=== PATIENT | male | born 1945 | race Caucasian/White ===

== ENCOUNTER 2018-12-04 09:13 | Day surgery (SDC) | payer OTHER ==
[2018-11-29 12:10] VITALS: BMI 30.7
--- NOTE | 2018-12-04 07:42 | HP ---
History & Physical Update - History History: No Change - Physical Physical: No Change - Assessment Assessment: No Change - Plan Plan: No Change (Initial H&P completed by patient's PCP is complete and accurate /UTD. No new complaints or medication(s). C/o LBP with RLE radiculopathy/ myelopathy)
[2018-12-04] MEDS ORDERED: oxyCODONE HCL 10 MG SUSTAINED ACTING TABLET PO STA (09:31)
[2018-12-04] MEDS ORDERED: BUPIVACAINE HCL/PF 0.5% (5 MG/ML) 30 ML VIAL IJ ONE (09:59)
[2018-12-04] MEDS ORDERED: MIDAZOLAM HCL 2 MG/2 ML SINGLE DOSE VIAL ONE ×2 (09:59→12:01)
[2018-12-04] MEDS ORDERED: GUM MASTIC/STORAX/MSAL/ALCOHOL 1 DRP DROPSBTL MC ONE (11:44)
[2018-12-04] MEDS ORDERED: methylPREDNISolone ACET (DEPO) 40 MG/1 ML VIAL ONE (11:44)
[2018-12-04] MEDS ORDERED: LIDOCAINE 1%/EPI 1:100000 (20 ML MULTI DOSE VIAL) ONE (11:44)
[2018-12-04] MEDS ORDERED: HYDROmorphone HCl 2 MG/ML VIAL ONE (11:47)
[2018-12-04] MEDS ORDERED: BUPIVACAINE HCL/PF 0.5% (5MG/ML) 10 ML VIAL ONE (11:56)
[2018-12-04] MEDS ORDERED: ceFAZolin SODIUM 1 GM VIAL ONE (12:25)
[2018-12-04] MEDS ORDERED: LIDOCAINE 1%/EPI 1:100000 (20 ML MULTI DOSE VIAL) INF ONE (12:25)
--- NOTE | 2018-12-04 14:19 | OP ---
Operative Note - Note: Operative Date: 12/04/18 Pre-Operative Diagnosis: L2/3 Spinal stenosis with LE radiculopathy (R>L) Operation: L2/3 laminectomy (bilateral). Advancement flap closure Post-Operative Diagnosis: Same as Pre-op Surgeon: Edward Pollack Cyanide Case Hardener: Tim Gordon Anesthesiologist/NEWS CLIPPING CUTTER: Ronny Khalil Anesthesia: Spinal Estimated Blood Loss (mls): 25 Fluid Volume Replaced (mls): 1,000 Operative Report Dictated: Yes
--- NOTE | 2018-12-04 14:20 | SURG ---
Surgery Irrigation Supervisor Note Irrigation Supervisor: Tim Gordon PA-C Date of Service: 12/04/18 Diagnosis: L2/3 Spinal stenosis with LE radiculopathy (R>L) Procedure: L2/3 laminectomy (bilateral); Advancement flap closure I was present for the entirety of the operative procedure. For further detail, please refer to operative report. Visit type - Case Type Case Type: Scheduled - New patient This patient is new to me today: Yes Date on this admission: 12/04/18
[2018-12-04 14:39] VITALS: TEMP 98
[2018-12-04 16:27] VITALS: BP 139/79; PULSE 72
--- NOTE | 2018-12-04 16:59 | OP ---
DATE OF OPERATION: 12/04/2018 PREOPERATIVE DIAGNOSIS: Spinal stenosis at L2-3. POSTOPERATIVE DIAGNOSIS: Spinal stenosis at L2-3. PROCEDURE PERFORMED: Laminectomy, L2-3; advancement of flap, L2-3. SURGEON: Edward Pollack MD CENTRIFUGAL DRIER OPERATOR: IMLTON Lawler ESTIMATED BLOOD LOSS: 50 mL. IV FLUIDS: Per Anesthesia. ANESTHESIA: Spinal/TLIP block. COMPLICATIONS: There was none. DISPOSITION: The patient was brought to the PACU in stable condition. INDICATION FOR SURGERY: The patient is a 73-year-old gentleman who had previously undergone lumbar fusion. He had developed adjacent level disease with spinal stenosis at L2-3. He had gone through an exhaustive course of treatment for this, which included medications, physical therapy, as well as injections. Unfortunately his pain continued to persist despite all this. At this point, risks, benefits, and alternatives were discussed and the patient consented to surgery. OPERATIVE NOTE: Patient was brought to the operating room by the anesthesia staff. After appropriate patient identification was performed, spinal anesthesia was given. A TLIP block was also given. The patient was able to position himself prone onto the OR table with all areas of bony prominences well padded at this time. Two needles were placed on his back to isabel off the L2-3 segment. X-rays taken to confirm this was correct. The needle was removed and 10 mL of lidocaine with epinephrine was injected into his back. At this time his back was prepped and draped in a sterile manner. At this point, an incision was made from the top of L2 down to bottom of L3. Dissection was carried down to the fascia. Fascia was split open at this time. An appropriate retractor was then placed in. A spinal needle was placed onto the L2 lamina to isabel off the L2-3 level. X-ray was taken to confirm this is correct. The needle was removed and the interspinous ligament of L2-3 was removed. Portions of the L2-L3 spinous process were removed. The lamina portions of L2-L3 lamina were removed. The flavum was identified, it was removed. A complete decompression was performed such that by the end of the procedure, the L3 nerve root appeared to be well decompressed. The fascia was closed with a number 1 Vicryl suture. Advancement flaps were made at this point. The subcutaneous tissue was closed with 2-0 Vicryl sutures. Skin was closed with 3-0 Monocryl suture. Dermabond was applied. Steri-Strips were applied. A sterile dressing was applied. The patient was placed supine on the OR bed, brought to the PACU in stable condition. EDWARD POLLACK M.D. BECKY/[id number]
== END 2018-12-04 16:42 | disposition home or self-care (01) ==
LOC: FASU 09:13
PROVIDERS: ATTEND Orthopaedic Surgery Orthopaedic Surgery of the Spine
PROC: 0JX70ZC Transfer Back Subcutaneous Tissue and Fascia with Skin, Subcutaneous Tissue and Fascia, Open Approach (ICD-10-PCS; 2018-12-04)
PROC: 01NB0ZZ Release Lumbar Nerve, Open Approach (ICD-10-PCS; principal; 2018-12-04 12:43)
DX: M48.061 Spinal stenosis, lumbar region without neurogenic claudication (principal)
CPT/HCPCS: 72100-TC-FY; 76000-TC-FY; 94760